=== PATIENT | male | born 1995 | race Caucasian/White ===

== ENCOUNTER 2020-07-12 20:35 | Emergency (ER) | payer OTHER ==
[2020-07-12] MEDS ORDERED: Ketorolac 60 MG/2 ML SDV IM ONE (20:45)
[2020-07-12] MEDS ORDERED: Diphtheria,Pertussis(Acell),Tetanus Vaccine 0.5 ML SDV IM ONE (21:07)
== END 2020-07-12 21:40 | disposition home or self-care (01) ==
LOC: FB.ED 20:35
DX: S60.011A Contusion of right thumb without damage to nail, initial encounter (principal); Z23 Encounter for immunization; W23.0XXA Caught, crushed, jammed, or pinched between moving objects, initial encounter
CPT/HCPCS: 73140; 90471; 90715; 96372; 99000; 99283; J1885